=== PATIENT | female | born 1990 | race Caucasian/White ===

== ENCOUNTER 2019-04-20 12:39 | Emergency (ER) | payer OTHER | END 2019-04-20 14:45 | disposition home or self-care (01) | LOC: FTE 12:39 | DX: J03.90 Acute tonsillitis, unspecified (principal) | CPT/HCPCS: 99283; Z7502 ==

== ENCOUNTER 2019-07-14 13:36 | Emergency (ER) | payer OTHER ==
[2019-07-14] MEDS ORDERED: KETOROLAC 15 MG INJ IV (13:52)
[2019-07-14 14:12] LABS: ADD MAN DIFF? NO
[2019-07-14 14:16] LABS: WHITE BLOOD COUNT 7.3 10^3/ul (4.8-10.8)
[2019-07-14 14:16] LABS: BASOPHILS % 0.4 % (0.0-2.0); EOSINOPHILS # 0.1 10^3/ul (0.0-0.5); EOSINOPHILS % 1.6 % (0.0-7.0); HEMATOCRIT 47.1 % (37.0-47.0); HEMOGLOBIN 15.8 g/dl (12.0-16.0); LYMPHOCYTES # 2.5 10^3/ul (0.8-2.9); LYMPHOCYTES % 33.7 % (15.0-51.0); MEAN CORPUSCULAR HEMOGLOBIN 29.4 pg (29.0-33.0); MEAN CORPUSCULAR HGB CONC 33.5 g/dl (32.0-37.0); MEAN CORPUSCULAR VOLUME 87.7 fl (82.0-101.0); MEAN PLATELET VOLUME 10.4 fl (7.4-10.4); MONOCYTE # 0.5 10^3/ul (0.3-0.9); MONOCYTES % 7.4 % (0.0-11.0); NEUTROPHIL # 4.1 10^3/ul (1.6-7.5); NEUTROPHILS % 56.5 % (39.0-77.0); PLATELET COUNT 344 10^3/UL (140-415); RED BLOOD COUNT 5.37 10^6/ul (4.20-5.40); RED CELL DISTRIBUTION WIDTH 12.1 % (11.5-14.5)
[2019-07-14] MEDS: SOD CHLORIDE 0.9% 250 ML IV (14:17)
[2019-07-14] MEDS: ONDANSETRON 4 MG INJ IV (14:17)
[2019-07-14] MEDS: METHYLPREDNISOLONE 125 MG INJ IV (14:17)
[2019-07-14] MEDS: HYDROCODONE/APAP (5/325) TAB PO (15:06)
== END 2019-07-14 15:21 | disposition home or self-care (01) ==
LOC: FTE 13:36
DX: G43.519 Persistent migraine aura without cerebral infarction, intractable, without status migrainosus (principal); H66.003 Acute suppurative otitis media without spontaneous rupture of ear drum, bilateral
CPT/HCPCS: 81025; 85025; 96361; 96374; 96375; 99284-25